=== PATIENT | male | born 1935 | race Caucasian/White ===

== ENCOUNTER 2018-04-29 14:23 | Inpatient (IN) | payer MEDICARE, OTHER ==
[~2018-04-29] VITALS: Ht 172.7 cm; Wt 70.3 kg
--- NOTE | 2018-04-29 14:35 | NUR ---
BB DAUGHTER: MEDICAL CLEARANCE FOR GPS ADMISSION. PATIENT IS AWAKE AND ALERT. NO SI NOR HI. VSS
[2018-04-29] MEDS ORDERED: ALBU18HF2 IH (15:39)
[2018-04-29] MEDS ORDERED: LORA1TAB PO (15:39)
[2018-04-29] MEDS ORDERED: POLY17PO3 PO (15:39)
[2018-04-29] MEDS ORDERED: DOCU-141 PO (15:39)
[2018-04-29] MEDS ORDERED: FERR325T23 PO (15:39)
[2018-04-29] MEDS ORDERED: FLUT16SP BNOSTRILS (15:39)
[2018-04-29] MEDS ORDERED: ATOR10TA PO (15:39)
[2018-04-29] MEDS ORDERED: POTA20TA83 PO (15:39)
[2018-04-29] MEDS ORDERED: SUVO15TA PO (15:39)
[2018-04-29] MEDS ORDERED: VENL75CA62 PO (15:39)
[2018-04-29] MEDS ORDERED: AMLO5TAB7 PO (15:39)
[2018-04-29] MEDS ORDERED: OMEP20CA10 PO (15:39)
[2018-04-29] MEDS ORDERED: FAMO20TA8 PO (15:39)
[2018-04-29] MEDS ORDERED: GABA-534 PO (15:39)
[2018-04-29] MEDS ORDERED: ACET-2605 PO (15:39)
[2018-04-29 15:42] LABS: BASOPHILS % (AUTO) 0.6 % (0.0-2.0); EOSINOPHILS % (AUTO) 2.8 % (0.0-6.0); HEMATOCRIT 35 % (39-51); HEMOGLOBIN 12.1 g/dL (13.5-17.5); LYMPHOCYTES % (AUTO) 30.9 % (20.0-44.0); MEAN CORPUSCULAR HGB CONC 35 g/dl (31.0-36.0); MEAN CORPUSCULAR VOLUME 81 fL (80-96); MONOCYTES # (AUTO) 0.5 /CMM (0.1-1.30); NEUTROPHILS # (AUTO) 3.8 /CMM (1.8-8.9); NEUTROPHILS % (AUTO) 57.7 % (43.0-81.0); PLATELET COUNT (AUTO) 356 /CMM (150-450); RDW COEFFICIENT OF VARIATION 13.2 (11.5-15.0); RED BLOOD CELL COUNT(AUTO) 4.26 MIL/uL (4.5-6.0); WHITE BLOOD COUNT (AUTO) 6.5 K/uL (4.3-11.0)
--- NOTE | 2018-04-29 15:57 | NUR ---
CALLED TIFFANIE BLEVINS AND SHE SAID SHE WOULD BE HERE WITHIN THE HOUR.
[2018-04-29 16:01] LABS: CARBON DIOXIDE 27 mmol/L (21-32); CHLORIDE 98 mmol/L (98-107); CREATININE 0.8 mg/dL (0.6-1.3); GLUCOSE 118 mg/dL (74-106); POTASSIUM 4.1 mmol/L (3.5-5.1); SODIUM SERUM 131 mmol/L (136-145); UREA NITROGEN, BLOOD 14 mg/dL (7-18)
[2018-04-29 16:22] LABS: ALANINE AMINOTRANSFERASE 21 U/L (12-78); ALBUMIN 3.4 g/dL (3.4-5.0); ASPARTATE AMINOTRANSFERASE 19 U/L (15-37); BILIRUBIN,DIRECT 0.1 mg/dL (0.0-0.2); BILIRUBIN,TOTAL 0.3 mg/dL (0.2-1.0); SALICYLATE < 2.8 mg/dL (2.8-20.0); TOTAL PROTEIN, SERUM 6.7 g/dL (6.4-8.2)
[2018-04-29 16:23] LABS: ACETAMINOPHEN < 2 ug/ml (10-30); ALCOHOL, BLOOD < 3 mg/dL (0-0)
[2018-04-29 16:33] LABS: ALKALINE PHOSPHATASE 84 U/L (46-116)
--- NOTE | 2018-04-29 16:45 | NUR ---
TIFFANIE BLEVINS AT BS FOR PSYCH EVAL.
[2018-04-29] MEDS ORDERED: DOCUSATE SODIUM 100 MG CAPSULE PO SCH (17:00)
[2018-04-29] MEDS ORDERED: ACETAMINOPHEN 325 MG TABLET ONE (17:00)
[2018-04-29] MEDS ORDERED: FLUTICASONE PROPIONATE 16 GM BOTTLE NS PRN (17:00)
[2018-04-29] MEDS ORDERED: GABAPENTIN 300 MG CAPSULE PO SCH (17:00)
[2018-04-29] MEDS ORDERED: POLYETHYLENE GLYCOL 3350 17 GM POWD.PACK PO PRN (17:00)
[2018-04-29] MEDS ORDERED: FERROUS SULFATE (325 MG) 325 MG/TAB TABLET PO SCH (17:00)
--- NOTE | 2018-04-29 17:01 | NUR ---
DR EVRGARA VERBALLY ORDERED TYLENOL 650 MG PO
[2018-04-29] MEDS ORDERED: ACETAMINOPHEN 325 MG TABLET PO ONE (18:00)
--- NOTE | 2018-04-29 18:13 | NUR ---
PT IS ASSIGNED TO GPS BED RM#: 213-B, PT IS DIAGNOSED WITH DEPRESSION, AND DR SHAW IS THE ACCEPTING PSYCHIATRIST.
[2018-04-29 18:40] VITALS: BP 130/70
[2018-04-29] MEDS ORDERED: ACETAMINOPHEN ES 500 MG TABLET PO PRN (19:00)
[2018-04-29] MEDS ORDERED: ALBUTEROL FS 2.5 MG/3 ML VIAL.NEB NEB PRN (19:30)
--- NOTE | 2018-04-29 19:40 | NUR ---
Report given to KYLIE Hurtado RN.
--- NOTE | 2018-04-29 19:57 | NUR ---
GPS RN NOTE, PATIENT HAS A COMPLAINT OF FEELING ANXIOUS AND IS REQUESTING ATIVAN AT THIS TIME. PATIENT VITAL SIGNS ARE STABLE. GAVE ATIVAN 1MG PO Q8HR PRN ORDERED. WILL REASSESS FOR ANXIETY AND I WILL CONTINUE TO MONITOR THIS PATIENT.
[2018-04-29] MEDS ORDERED: MAG HYDROX/AL HYDROX/SIMETH 30 ML UDC PO PRN (20:00)
[2018-04-29] MEDS ORDERED: TEMAZEPAM 7.5 MG CAPSULE PO PRN (20:00)
[2018-04-29] MEDS ORDERED: LORAZEPAM 1 MG TABLET PO PRN (20:00)
[2018-04-29] MEDS ORDERED: MAGNESIUM HYDROXIDE 30 ML UDC PO PRN (20:00)
[2018-04-29] MEDS ORDERED: ACETAMINOPHEN 325 MG TABLET PO PRN (20:00)
--- NOTE | 2018-04-29 20:39 | NUR ---
GPS DISCHARGE NOTE, PATIENT FAMILY AT BEDSIDE STATING, "MY FATHER IS VOLUNTARY AND DOES NOT WANT TO BE HEAR ANYMORE, I WOULD LIKE HIM TO BE DISCHARGED ". PAGED DR COBB AND INFORMED HIM OF MY FINDINGS. DR COBB GAVE THE ORDER TO DISCHARGE THE PATIENT [place] [address]. DR WALTON MADE AWARE AND AGREES WITH DISCHARGE. PATIENT IS STABLE FOR DISCHARGE. PATIENT DENIES SI , HI , AND AH/VH AT THIS TIME. PATIENT REFUSING SKIN ASSESSMENT. PATIENT SIGNED ALL PAPER WORK WHICH I WITNESSED HIM SIGNING. PATIENT GIVEN BACK ALL BELONGINGS UPON DISCHARGE WITH BELONGINGS SHEET SIGNED. PATIENT [place]CHAR[place] [address].
[2018-04-29] MEDS ORDERED: ATORVASTATIN 10 MG TABLET PO SCH (22:00)
[2018-04-30] MEDS ORDERED: PANTOPRAZOLE 40 MG TABLET.DR PO SCH (07:30)
[2018-04-30] MEDS ORDERED: AMLODIPINE BESYLATE 5 MG TABLET PO SCH (09:00)
[2018-04-30] MEDS ORDERED: POTASSIUM CHLORIDE 20 MEQ TAB.PRT.SR PO SCH (09:00)
[2018-04-30] MEDS ORDERED: FAMOTIDINE (20 MG) 20 MG TABLET PO SCH (09:00)
== END 2018-04-29 20:42 | disposition left against medical advice (07) | DRG 885 ==
LOC: ER 14:29 → GPS 18:21
PROVIDERS: ADMIT Internal Medicine; ATTEND Internal Medicine
DX: F29 Unspecified psychosis not due to a substance or known physiological condition (principal); I10 Essential (primary) hypertension; K21.9 Gastro-esophageal reflux disease without esophagitis; R51 Headache
CPT/HCPCS: 36415; 80048-TC; 80076-TC; 85025-TC; 87081-TC; A4606; G0480; Z7610

== ENCOUNTER 2024-05-07 12:20 | Emergency (ER) | payer MEDICARE, OTHER ==
[~2024-05-07] VITALS: Ht 167.6 cm; Wt 66.2 kg
[~2024-05-07 12:20] MED LIST: ACET-2605 PO; ALBU18HF2 IH; AMLO-212 PO; ATOR10TA PO; DOCU-141 PO; FAMO20TA8 PO; FERR325T23 PO; FLUT16SP BNOSTRILS; GABA-534 PO; LORA1TAB PO; OMEP20CA15 PO; POLY17PO29 PO; POTA20TA83 PO; SUVO15TA PO; VENL75CA62 PO
[2024-05-07 13:24] VITALS: BP 131/69; TEMP 98.6; O2SAT 95
[2024-05-07 13:31] LABS: BASOPHILS % (AUTO) 0.7 % (0.0-2.0); EOSINOPHILS # (AUTO) 0.2 K/uL (0.0-0.7); EOSINOPHILS % (AUTO) 2.6 % (0.0-6.0); HEMATOCRIT 34 % (39-51); HEMOGLOBIN 11.5 g/dL (13.5-17.5); LYMPHOCYTES # (AUTO) 1.9 K/uL (0.8-4.8); LYMPHOCYTES % (AUTO) 28.7 % (20.0-44.0); MEAN CORPUSCULAR HEMOGLOBIN 27 PG (26.0-33.0); MEAN CORPUSCULAR HGB CONC 33 g/dl (31.0-36.0); MEAN CORPUSCULAR VOLUME 80 fL (80-96); MONOCYTES # (AUTO) 0.6 K/uL (0.1-1.30); MONOCYTES % (AUTO) 8.2 % (2.0-12.0); NEUTROPHILS % (AUTO) 59.8 % (43.0-81.0); PLATELET COUNT (AUTO) 314 K/uL (150-450); RED BLOOD CELL COUNT(AUTO) 4.28 MIL/uL (4.5-6.0); WHITE BLOOD COUNT (AUTO) 6.8 K/uL (4.3-11.0)
[2024-05-07 13:34] LABS: CALCIUM, SERUM 10.3 mg/dL (8.5-10.1); CARBON DIOXIDE 23 mmol/L (21-32); CHLORIDE 106 mmol/L (98-107); GLUCOSE 108 mg/dL (74-106); POTASSIUM 3.8 mmol/L (3.5-5.1); SODIUM SERUM 141 mmol/L (136-145); UREA NITROGEN, BLOOD 21 mg/dL (7-18)
[2024-05-07] MEDS ORDERED: VIT1CAPS44 PO (13:34)
[2024-05-07] MEDS ORDERED: SERT100T12 PO (13:34)
[2024-05-07] MEDS ORDERED: TURMERIC PO (13:34)
[2024-05-07] MEDS ORDERED: CLON0.122 PO (13:34)
[2024-05-07] MEDS ORDERED: PRAV40TA3 PO (13:34)
[2024-05-07] MEDS ORDERED: MIRT-90 PO (13:34)
[2024-05-07] MEDS ORDERED: CLON0.252 PO (13:34)
[2024-05-07] MEDS ORDERED: GINGER PO (13:34)
[2024-05-07] MEDS ORDERED: CYAN-51 PO (13:34)
[2024-05-07] MEDS ORDERED: CLOP75TA15 PO (13:34)
[2024-05-07] MEDS ORDERED: TRAM50TA2 PO (13:34)
[2024-05-07] MEDS ORDERED: LOSA25TA27 PO (13:34)
[2024-05-07] MEDS ORDERED: SUVO20TA PO (13:34)
[2024-05-07] MEDS ORDERED: [UNRECOGNIZED DRUG - OTHER] PO (13:34)
[2024-05-07 13:42] LABS: ACETAMINOPHEN <10 ug/ml (10-30); ALANINE AMINOTRANSFERASE 15 U/L (12-78); ALBUMIN 3.2 g/dL (3.4-5.0); ALCOHOL, BLOOD < 3 mg/dL (0-10); ALKALINE PHOSPHATASE 93 U/L (46-116); ASPARTATE AMINOTRANSFERASE 17 U/L (15-37); BILIRUBIN,DIRECT 0.1 mg/dL (0.0-0.2); BILIRUBIN,TOTAL 0.3 mg/dL (0.2-1.0); SALICYLATE 1.3 mg/dL (2.8-20.0); TOTAL PROTEIN, SERUM 7.5 g/dL (6.4-8.2)
== END 2024-05-07 13:28 | disposition left against medical advice (07) ==
LOC: ER 12:20
DX: Z00.00 Encounter for general adult medical examination without abnormal findings (principal); I10 Essential (primary) hypertension; E78.5 Hyperlipidemia, unspecified; K21.9 Gastro-esophageal reflux disease without esophagitis; F32.A Depression, unspecified; Z88.8 Allergy status to other drugs, medicaments and biological substances; Z79.899 Other long term (current) drug therapy
CPT/HCPCS: 36415; 80048-TC; 80076-TC; 85025-TC; G0480

== ENCOUNTER 2024-05-09 16:05 | Inpatient (IN) | payer MEDICARE, OTHER ==
[~2024-05-09] VITALS: Ht 165.1 cm; Wt 64.0 kg
[~2024-05-09 16:05] MED LIST changes: -ALBU18HF2 IH; -ATOR10TA PO; +CLON0.122 PO; +CLON0.252 PO; +CLOP75TA15 PO; +CYAN-51 PO; -DOCU-141 PO; -FLUT16SP BNOSTRILS; -GABA-534 PO; +GINGER PO; -LORA1TAB PO; +LOSA25TA27 PO; +MIRT-90 PO; -POLY17PO29 PO; +PRAV40TA3 PO; +SERT100T12 PO; -SUVO15TA PO; +SUVO20TA PO; +TRAM50TA2 PO; +TURMERIC PO; -VENL75CA62 PO; +VIT1CAPS44 PO; +[UNRECOGNIZED DRUG - OTHER] PO
[2024-05-09 16:54] LABS: APPEARANCE,URINE Clear (CLEAR); BILIRUBIN,URINE Negative (NEGATIVE); BLOOD, URINE Small Ery/uL (NEGATIVE); COLOR,URINE YELLOW (YELLOW); KETONES,URINE Negative (NEGATIVE); LEUKOCYTE ESTERASE ,URINE Negative (NEGATIVE); NITRITE, URINE Negative (NEGATIVE); PH,URINE 5.5 (5.0-8.0); PROTEIN,URINE 30 mg/dl (NEGATIVE); UGLUCOSE Negative (NEGATIVE); UROBILINOGEN,URINE 0.2 EU/dL (0.2)
[2024-05-09 16:58] LABS: BASOPHILS # (AUTO) 0.1 K/uL (0.0-0.2); BASOPHILS % (AUTO) 0.9 % (0.0-2.0); EOSINOPHILS # (AUTO) 0.1 K/uL (0.0-0.7); EOSINOPHILS % (AUTO) 1.2 % (0.0-6.0); HEMATOCRIT 36 % (39-51); HEMOGLOBIN 11.7 g/dL (13.5-17.5); LYMPHOCYTES # (AUTO) 1.6 K/uL (0.8-4.8); LYMPHOCYTES % (AUTO) 23.4 % (20.0-44.0); MEAN CORPUSCULAR HEMOGLOBIN 26 PG (26.0-33.0); MEAN CORPUSCULAR HGB CONC 33 g/dl (31.0-36.0); MEAN CORPUSCULAR VOLUME 80 fL (80-96); MONOCYTES # (AUTO) 0.6 K/uL (0.1-1.30); MONOCYTES % (AUTO) 8.9 % (2.0-12.0); NEUTROPHILS # (AUTO) 4.5 K/uL (1.8-8.9); NEUTROPHILS % (AUTO) 65.6 % (43.0-81.0); PLATELET COUNT (AUTO) 325 K/uL (150-450); RED BLOOD CELL COUNT(AUTO) 4.49 MIL/uL (4.5-6.0); RED CELL DISTRIBUTION WIDTH 15.2 % (11.5-15.0); WHITE BLOOD COUNT (AUTO) 6.9 K/uL (4.3-11.0)
[2024-05-09 17:03] LABS: AMPHETAMINE, URINE NEGATIVE (NEGATIVE); BARBITURATE, URINE NEGATIVE (NEGATIVE); BENZODIAZEPINE, URINE NEGATIVE (NEGATIVE); CANNABINOID, URINE NEGATIVE (NEGATIVE); COCCAINE, URINE NEGATIVE (NEGATIVE); OPIATE, URINE NEGATIVE (NEGATIVE); PHENCYCLIDINE SCREEN,URINE NEGATIVE (NEGATIVE)
[2024-05-09 17:05] LABS: ADD URINE CULTURE NO; BACTERIA,URINE None seen /HPF (None Seen); SQUAMOUS EPITHELIAL CELL,UR None Seen /HPF (None Seen); WBC,URINE 0-2 /HPF (0-3)
[2024-05-09 17:07] LABS: CALCIUM, SERUM 9.7 mg/dL (8.5-10.1); CARBON DIOXIDE 24 mmol/L (21-32); CHLORIDE 104 mmol/L (98-107); GLUCOSE 95 mg/dL (74-106); POTASSIUM 4.2 mmol/L (3.5-5.1); SODIUM SERUM 135 mmol/L (136-145); UREA NITROGEN, BLOOD 21 mg/dL (7-18)
[2024-05-09 17:14] LABS: ALANINE AMINOTRANSFERASE 21 U/L (12-78); ALBUMIN 3.3 g/dL (3.4-5.0); ALKALINE PHOSPHATASE 85 U/L (46-116); ASPARTATE AMINOTRANSFERASE 17 U/L (15-37); BILIRUBIN,DIRECT 0.1 mg/dL (0.0-0.2); BILIRUBIN,TOTAL 0.2 mg/dL (0.2-1.0); TOTAL PROTEIN, SERUM 7.4 g/dL (6.4-8.2)
[2024-05-09 17:18] LABS: ACETAMINOPHEN < 2 ug/ml (10-30); SALICYLATE 1.1 mg/dL (2.8-20.0)
[2024-05-09 17:19] LABS: ALCOHOL, BLOOD < 3 mg/dL (0-10)
[2024-05-09 21:50] VITALS: BP 142/73; TEMP 98.7; O2SAT 97
[2024-05-09] MEDS ORDERED: MAG HYDROX/AL HYDROX/SIMETH 30 ML UDC PO PRN (22:00)
[2024-05-09] MEDS ORDERED: MAGNESIUM HYDROXIDE 30 ML UDC PO PRN (22:00)
[2024-05-09] MEDS ORDERED: LORAZEPAM 0.5 MG TABLET PO PRN (22:00)
[2024-05-09] MEDS ORDERED: [UNRECOGNIZED DRUG - OTHER] PO SCH (22:30)
[2024-05-09] MEDS ORDERED: Medication Not On Formulary EA (Suvorexant (Belsomra) 20 MG) PO PRN (22:30)
[2024-05-09] MEDS ORDERED: [UNRECOGNIZED DRUG - OTHER] PO SCH (22:30)
[2024-05-09] MEDS ORDERED: TURMERIC PO SCH (22:30)
[2024-05-09] MEDS ORDERED: ACETAMINOPHEN ES 500 MG TABLET PO PRN (22:30)
[2024-05-09] MEDS: BLOOD SUGAR DIAGNOSTIC 1 EACH STRIP IN ONE (23:14)
[2024-05-09] MEDS: TEMAZEPAM 7.5 MG CAPSULE PO PRN (23:14)
[2024-05-10] MEDS: PANTOPRAZOLE 40 MG TABLET.DR PO SCH (07:54)
[2024-05-10 08:00] VITALS: BP 140/72; TEMP 97.7; O2SAT 98
[2024-05-10] MEDS ORDERED: FAMOTIDINE (20 MG) 20 MG TABLET PO SCH (09:00)
[2024-05-10] MEDS: CYANOCOBALAMIN 500 MCG TABLET PO SCH (09:09)
[2024-05-10] MEDS: CLOPIDOGREL BISULFATE 75 MG TABLET PO SCH (09:09)
[2024-05-10] MEDS: FERROUS SULFATE (325 MG) 325 MG/TAB TABLET PO SCH (09:09)
[2024-05-10] MEDS: MULTIVIT W/MINERALS 1 TAB TABLET PO SCH (09:10)
[2024-05-10] MEDS: AMLODIPINE BESYLATE 5 MG TABLET PO SCH (09:10)
[2024-05-10] MEDS: LOSARTAN POTASSIUM 25 MG TABLET PO SCH (09:10)
[2024-05-10 14:00] LABS: BILIRUBIN,TOTAL 0.4 mg/dL (0.2-1.0); POTASSIUM 3.7 mmol/L (3.5-5.1); TOTAL PROTEIN, SERUM 8.1 g/dL (6.4-8.2)
[2024-05-10 14:10] LABS: ALBUMIN 3.4 g/dL (3.4-5.0); CALCIUM, SERUM 10.6 mg/dL (8.5-10.1)
[2024-05-10 15:54] VITALS: BP 131/73; TEMP 97.9; O2SAT 97
[2024-05-10 20:00] VITALS: BP 144/70; TEMP 97.7; O2SAT 96
[2024-05-10] MEDS: ATORVASTATIN 10 MG TABLET PO SCH (21:21)
[2024-05-11 08:00] VITALS: BP 140/70; TEMP 98.1; O2SAT 98
[2024-05-11] MEDS: ACETAMINOPHEN 325 MG TABLET PO PRN (12:40)
[2024-05-11 16:00] VITALS: BP 137/67; TEMP 97.8; O2SAT 100
[2024-05-11] MEDS: MIRTAZAPINE 15 MG TABLET PO SCH (21:16)
[2024-05-12 08:00] VITALS: BP 164/90; TEMP 98; O2SAT 98
[2024-05-12] MEDS: busPIRone 5 MG TABLET PO SCH (15:36)
[2024-05-12 16:00] VITALS: BP 162/86; TEMP 97.7; O2SAT 98
[2024-05-12 20:00] VITALS: BP 158/93; TEMP 98.2; O2SAT 98
[2024-05-12 23:31] VITALS: BP 158/93
[2024-05-13 08:00] VITALS: BP 138/75; TEMP 97.6; O2SAT 98
[2024-05-13 10:00] VITALS: BP 138/75
[2024-05-13] MEDS: TRAMADOL HCL 50 MG TABLET PO PRN (12:44)
[2024-05-13 16:00] VITALS: BP 160/79; TEMP 97.5; O2SAT 94
[2024-05-13 22:00] VITALS: BP 126/69
[2024-05-14 08:00] VITALS: BP 138/79; TEMP 97.6; O2SAT 98
[2024-05-14 10:00] VITALS: BP 138/79
[2024-05-14] MEDS: busPIRone 5 MG TABLET PO SCH (13:39)
[2024-05-14 16:00] VITALS: BP 131/77; TEMP 98.1; O2SAT 95
[2024-05-14 20:00] VITALS: BP 131/72; TEMP 97.8; O2SAT 99
[2024-05-14 22:32] VITALS: BP 131/72
[2024-05-15 08:00] VITALS: BP 154/74; TEMP 97.9; O2SAT 96
[2024-05-15 10:00] VITALS: BP 154/74
[2024-05-15 16:00] VITALS: BP 160/77; TEMP 98.1; O2SAT 96
[2024-05-15] MEDS: hydrALAZINE HCL 25 MG TABLET PO PRN (17:10)
[2024-05-15 20:12] VITALS: BP 160/81; TEMP 98.1; O2SAT 98
[2024-05-15] MEDS: MIRTAZAPINE 15 MG TABLET PO SCH (21:19)
[2024-05-15 22:00] VITALS: BP 160/81
[2024-05-16 08:00] VITALS: BP 156/77; TEMP 97.9; O2SAT 97
[2024-05-16 10:00] VITALS: BP 156/77
[2024-05-16 16:00] VITALS: BP 149/83; TEMP 98.1; O2SAT 98
[2024-05-16 20:39] VITALS: BP 156/75; TEMP 98.4; O2SAT 97
[2024-05-16] MEDS: MIRTAZAPINE 15 MG TABLET PO SCH (21:27)
[2024-05-16 22:00] VITALS: BP 156/77
[2024-05-17 08:00] VITALS: BP 137/87; TEMP 97.7; O2SAT 95
[2024-05-17 10:00] VITALS: BP 137/87
[2024-05-17 16:00] VITALS: BP 143/71; TEMP 98.7; O2SAT 96
[2024-05-17 20:26] VITALS: BP 113/64; TEMP 98.6; O2SAT 98
[2024-05-17 22:00] VITALS: BP 113/64
[2024-05-18 08:00] VITALS: BP 162/97; TEMP 97.7; O2SAT 97
[2024-05-18 08:16] VITALS: BP 162/97
== END 2024-05-18 18:37 | DRG 881 ==
LOC: ER 16:08 → GPS 21:11
PROVIDERS: ADMIT Psychiatry & Neurology Psychosomatic Medicine; ATTEND Nurse Practitioner Acute Care
DX: F32.A Depression, unspecified (principal); E87.1 Hypo-osmolality and hyponatremia; F03.93 Unspecified dementia, unspecified severity, with mood disturbance; F03.94 Unspecified dementia, unspecified severity, with anxiety; F03.911 Unspecified dementia, unspecified severity, with agitation; F29 Unspecified psychosis not due to a substance or known physiological condition; I10 Essential (primary) hypertension; K21.9 Gastro-esophageal reflux disease without esophagitis; E86.0 Dehydration; F41.9 Anxiety disorder, unspecified; Z88.8 Allergy status to other drugs, medicaments and biological substances; Z79.02 Long term (current) use of antithrombotics/antiplatelets; Z79.899 Other long term (current) drug therapy; E78.5 Hyperlipidemia, unspecified; I25.10 Atherosclerotic heart disease of native coronary artery without angina pectoris; D64.9 Anemia, unspecified; H93.19 Tinnitus, unspecified ear; Z20.822 Contact with and (suspected) exposure to COVID-19
CPT/HCPCS: 36415; 71045-TC; 80048-TC; 80053-TC; 80061-TC; 80076-TC; 81001; 82962-TC; 84443-TC; 85025-TC; 87081-TC; 97116-TC; G0480